=== PATIENT | female | born 1960 | race Caucasian/White ===

== ENCOUNTER 2018-05-13 13:00 | Outpatient (RCR) | payer BC ==
[2018-02-15 16:54] VITALS: BP 129/77
[~2018-05-13 13:00] MED LIST: ARIPIPRAZOLE10 M1 PO; KETOROLAC10 MG PO; LEVETIRACETAM500 M2 PO; MEDROL 4MG DOSPA4 MG PO; TRAMADOL 50 MG TAB PO; VENLAFAXINE HCL75 M3 PO; VENLAFAXINE HY150 MG PO
== END 2018-06-16 | disposition home or self-care (01) ==
LOC: PT
DX: S42.222D 2-part displaced fracture of surgical neck of left humerus, subsequent encounter for fracture with routine healing (principal)